=== PATIENT | male | born 1995 | race Caucasian/White ===

== ENCOUNTER → 2017-02-05 | Outpatient (CLI) | payer BC | LOC: KOH-I 12:30 | DX: R10.11 Right upper quadrant pain (principal) | CPT/HCPCS: 76705 ==

== ENCOUNTER → 2017-02-13 | Outpatient (CLI) | payer BC | LOC: NM 12:35 | DX: R10.11 Right upper quadrant pain (principal) | CPT/HCPCS: 78227; A9537; J2805 ==

== ENCOUNTER → 2020-10-19 | Outpatient (CLI) | payer BC, OTHER ==
[~2020-10-19] MED LIST: IBUPROFEN600 MG PO
== END ==
LOC: KOH-I 16:34
DX: M25.571 Pain in right ankle and joints of right foot (principal); M79.671 Pain in right foot
CPT/HCPCS: 73610; 73630

== ENCOUNTER → 2020-11-13 | Outpatient (CLI) | payer BC, OTHER | LOC: KOH-I 11:31 | DX: M25.571 Pain in right ankle and joints of right foot (principal); M79.671 Pain in right foot; S93.01XA Subluxation of right ankle joint, initial encounter; M25.871 Other specified joint disorders, right ankle and foot | CPT/HCPCS: 73610; 73630 ==

== ENCOUNTER → 2020-12-12 | Outpatient (CLI) | payer BC, OTHER | LOC: KOH-I 15:13 | DX: S92.101A Unspecified fracture of right talus, initial encounter for closed fracture (principal) | CPT/HCPCS: 73610 ==

== ENCOUNTER → 2021-04-23 | Outpatient (CLI) | payer OTHER | LOC: KOH-I 12:31 | DX: M25.572 Pain in left ankle and joints of left foot (principal); M25.571 Pain in right ankle and joints of right foot; M79.672 Pain in left foot; M79.671 Pain in right foot | CPT/HCPCS: 73610; 73630; 73650 ==

== ENCOUNTER 2021-09-19 12:15 | Emergency (ER) | payer OTHER | END 2021-09-19 18:51 | disposition left against medical advice (07) | LOC: ER1 12:15 | DX: U07.1 COVID-19 (principal) | CPT/HCPCS: 99283 ==